=== PATIENT | female | born 2000 | race Caucasian/White ===

== ENCOUNTER 2020-02-04 12:41 | Emergency (ER) | payer SELFPAY ==
[~2020-02-04] VITALS: Ht 154.9 cm; Wt 59.0 kg
[2020-02-04] MEDS ORDERED: SODIUM CHLORIDE 0.9% 1000ML 1,000 ML IV STA (13:02)
--- NOTE | 2020-02-04 13:08 | NUR ---
2 ATTEMPTS AT IV SUCCESSFUL. CHARGE NURSE NOTIFIED
[2020-02-04] MEDS ORDERED: ONDANSETRON HCL INJ 2MG/ML 2ML 2 MG/ML VIAL IV NR (13:15)
[2020-02-04] MEDS ORDERED: PANTOPRAZOLE 40 MG 10ML VIAL IV NR (13:15)
[2020-02-04] MEDS ORDERED: MAGNESIUM/ALUMINUM/SIMETHICONE 30 ML UDC PO NR (13:30)
[2020-02-04] MEDS ORDERED: BELLADONNA ALK/PHENOBARBITAL 5 ML UDC PO NR (13:30)
[2020-02-04] MEDS ORDERED: LIDOCAINE VISC 2% SOLN 15 ML UDC PO NR (13:30)
[2020-02-04 13:31] LABS: BASOPHILS # (AUTO) 0.1 (0.0-0.1); BASOPHILS % 0.7 % (0.0-1.0); EOSINOPHILS # (AUTO) 0.2 (0.0-0.4); EOSINOPHILS % 2.7 % (0.0-6.0); HEMATOCRIT 41.8 % (34.2-44.1); LYMPHOCYTES # (AUTO) 2.2 (1.0-3.2); LYMPHOCYTES % 25.5 % (18.0-39.1); MEAN CORPUSCULAR HGB CONC 33.5 g/dL (31-35); MEAN CORPUSCULAR VOLUME 89.7 fL (81-99); MONOCYTES # (AUTO) 0.6 (0.2-0.8); MONOCYTES % 6.6 % (4.4-11.3); NEUTROPHILS # (AUTO) 5.5 (2.1-6.9); NEUTROPHILS % 64.3 % (38.7-80.0); PLATELET COUNT 371 x10e3/uL (140-360); RED BLOOD COUNT 4.66 x10e6/uL (3.6-5.1); RED CELL DISTRIBUTION WIDTH 12.1 % (11.7-14.4)
[2020-02-04 13:38] LABS: BILIRUBIN,URINE NEGATIVE (NEGATIVE); CLARITY,URINE CLEAR (CLEAR); COLOR,URINE YELLOW (YELLOW); KETONES,URINE NEGATIVE (NEGATIVE); LEUKOCYTE ESTERASE ,URINE NEGATIVE (NEGATIVE); NITRITE,URINE NEGATIVE (NEGATIVE); PROTEIN,URINE DIPSTICK >=300 (NEGATIVE); URINE UROBILINOGEN 0.2 mg/dL (0.2 - 1)
[2020-02-04 13:39] LABS: PREGNANCY TEST, URINE NEGATIVE (NEGATIVE)
[2020-02-04 13:59] LABS: BACTERIA,URINE RARE /HPF; EPITHELIAL CELLS,URINE FEW /LPF
--- NOTE | 2020-02-04 13:59 | Emergency Department Note ---
History of Present Illnes History of Present Illness Chief Complaint: Abdominal Complaints History of Present Illness This is a 19 year old female pt c/o epigastric/upper abdominal pain x 1 week, pt states that every time she tries to eat or drink something, she starts gagging, occasionally burps acid taste into mouth, pt states having episode of "green" stool, tenderness to the epigastric region noted on palpation. Historian: Patient Arrival Mode: [employer] Required: No Onset (how long ago): week(s) (1) Location: [facility] ABDOMEN Quality: BURNING Radiation: Reports non-radiation Severity: moderate Onset quality: gradual Timing of current episode: intermittent Progression: waxing and waning Chronicity: new Context: Denies recent illness Relieving factors: none Exacerbating factors: eating Associated symptoms: Reports denies other symptoms Past Medical/Family History Physician Review I have reviewed the patient's past medical and family history. Any updates have been documented here. Past Medical History Recent Fever: No Clinical Suspicion of Infectio: No New/Unexplained Change in Ment: No Past Medical History: None Past Surgical History: None Social History Smoking Cessation: Never Smoker Counseling Performed: No Alcohol Use: None Any Illegal Drug Use: No TB Exposure/Symptoms: No Physically hurt or threatened: No Family History Family history of heart diseas: No Other family history mother had cholecystectomy Other Any Pre-Existing Lines (PICC,: No Review of Systems Review of Systems Constitutional: Reports no symptoms EENTM: Reports no symptoms Cardiovascular: Reports no symptoms Respiratory: Reports no symptoms Gastrointestinal: Reports as per HPI Genitourinary: Reports no symptoms Musculoskeletal: Reports no symptoms Integumentary: Reports no symptoms Neurological: Reports no symptoms Psychological: Reports no symptoms Endocrine: Reports no symptoms Hematological/Lymphatic: Reports no symptoms Physical Exam Related Data Allergies: Coded Allergies: No Known Allergies (Unverified , 02/04/20) Triage Vital Signs Vital Signs Date Time Temp Pulse Resp B/P (MAP) Pulse Ox O2 Delivery O2 Flow Rate FiO2 02/04/20 12:54 97.5 112 18 126/96 100 Room Air Vital signs reviewed: Yes Physical Exam CONSTITUTIONAL Constitutional: Present well-developed, Present well-nourished HENT HENT: Present normocephalic, Present atraumatic, Present oropharynx clear/moist , Present nose normal HENT L/R: Present left ext ear normal, Present right ext ear normal EYES Eyes: Reports PERRL, Reports conjunctivae normal NECK Neck: Present ROM normal PULMONARY Pulmonary: Present effort normal, Present breath sounds normal CARDIOVASCULAR Cardiovascular: Present regular rhythm, Present heart sounds normal, Present capillary refill normal, Present normal rate GASTROINTESTINAL Abdominal: Present soft, Present bowel sounds normal, Present tender (mild TTP in JULIAN area, no RUQ tenderness and negative Campbell's sign); Absent guarding, Absent rebound GENITOURINARY Genitourinary: Present exam deferred SKIN Skin: Present warm, Present dry MUSCULOSKELETAL Musculoskeletal: Present ROM normal NEUROLOGICAL Neurological: Present alert, Present oriented x 3, Present no gross motor or sensory deficits PSYCHOLOGICAL Psychological: Present mood/affect normal, Present judgement normal Results Laboratory Laboratory Laboratory Tests Test 02/04/20 13:12 Urine Color Yellow (YELLOW) Urine Clarity Clear (CLEAR) Urine pH 7 (5 - 7) Urine Specific [place] 1.030 (1.010-1.025) Urine Protein >=300 (NEGATIVE) Urine Glucose (UA) Negative (NEGATIVE) Urine Ketones Negative (NEGATIVE) Urine Blood Trace (NEGATIVE) Urine Nitrite Negative (NEGATIVE) Urine Bilirubin Negative (NEGATIVE) Urine Urobilinogen 0.2 mg/dL (0.2 - 1) Urine Leukocyte Esterase Negative (NEGATIVE) Urine Test Negative (NEGATIVE) Lab results reviewed: Yes Assessment & Plan Medical Decision Making MDM 19 y/o with JULIAN abd pain and GERD sx's - likely gastritis - check cbc, CMP, Amylase/Lipase, UA/cx - r/o gastritis, cholecystitis, pancreatitis. Will give IVF's, Protonix, Zofran and GI cocktail Reassessment Reassessment IMPROVED WITH MEDS. DC HOME WITH PROTONIX, BENTYL, DIET MODIFICATIONS FOR GERD/GASTRITIS, F/U PCP & GI Assessment & Plan Final Impression: (1) Gastritis Depart Disposition: HOME, SELF-CARE Last Vital Signs Date Time Temp Pulse Resp B/P (MAP) Pulse Ox O2 Delivery O2 Flow Rate FiO2 02/04/20 12:54 97.5 112 18 126/96 100 Room Air Medications in the ED Pantoprazole Sodium 40 mg ONCE IV Last administered on 02/04/20at 13:24; Admin Dose 40 MG; Start 02/04/20 at 13:15; Stop 02/04/20 at 14:59 Ondansetron HCl 4 mg ONCE IV ; Start 02/04/20 at 13:15; Stop 02/04/20 at 14:59 Sodium Chloride 1,000 ml @ 0 mls/hr Q0M STAT IV Last administered on 02/04/20at 13:24; Admin Dose 999 MLS/HR; Start 02/04/20 at 13:02; Stop 02/04/20 at 13:05; Status DC Magnesium Aluminum Silicate 30 ml ONCE PO Last administered on 02/04/20 13:47; Admin Dose 30 ML; Start 02/04/20 at 13:30; Stop 02/04/20 at 14:59 Belladonna Alkaloids/ Phenobarbital 10 ml ONCE PO Last administered on at 13:47; Admin Dose 10 ML; Start 02/04/20 at 13:30; Stop 02/04/20 at 14:59 Lidocaine HCl 10 ml ONCE PO Last administered on 02/04/20at 13:47; Admin Dose 10 ML; Start 02/04/20 at 13:30; Stop 02/04/20 at 14:59 HÉCTOR OTERO MD Feb 04, 2020 13:59
[2020-02-04 14:01] LABS: ALANINE AMINOTRANSFERASE 9 IU/L (0-55); ALBUMIN 4.6 g/dL (3.5-5.0); ALBUMIN/GLOBULIN RATIO 1.5 (0.8-2.0); ALKALINE PHOSPHATASE 103 IU/L (40-150); AMYLASE 56 U/L (25-125); ANION GAP 16.1 mmol/L (8-16); BLOOD UREA NITROGEN 10 mg/dL (7-26); BUN/CREATININE RATIO 14 (6-25); CALCIUM 9.5 mg/dL (8.4-10.2); CARBON DIOXIDE 23 mmol/L (22-29); CHLORIDE 106 mmol/L (98-107); CREATININE, SERUM 0.71 mg/dL (0.57-1.11); EST GLOMERULAR FILTRATION RATE > 60 ML/MIN (60-); GLUCOSE 82 mg/dL (74-118); LIPASE 19 U/L (8-78); POTASSIUM 4.1 mmol/L (3.5-5.1); SODIUM 141 mmol/L (136-145)
[2020-02-04 14:59] VITALS: BP 122/76
== END 2020-02-04 15:02 | disposition home or self-care (01) ==
LOC: ER 12:50
DX: R10.13 Epigastric pain (principal); K29.70 Gastritis, unspecified, without bleeding
CPT/HCPCS: 36415; 80053; 81001; 81025; 82150; 83690; 85025; 87086; 99284; C9113; J2405; J7030